=== PATIENT | male | born 1935 | race Caucasian/White ===

== ENCOUNTER 2017-07-26 12:49 | Emergency (ER) | payer MEDICARE, BC ==
[~2017-07-26] VITALS: Ht 177.8 cm; Wt 94.0 kg
[~2017-07-26 12:49] MED LIST: AUGMENTIN875TAB PO; BP MED; FLEXERIL PO; LOSARTAN/HCT1 TA2 PO; NAPROSYN500 MG PO; NICARDIPINE PO
[2017-07-26 13:18] LABS: HEMATOCRIT 40.7 % (39.0-50.0); HEMOGLOBIN 13.8 g/dl (14.0-18.0); IMMATURE GRANULOCYTES 0.3 % (0.0-1.0); MEAN CELL VOLUME 92.5 fL CALC (80.0-100.0); MEAN CORPUSCULAR HGB 31.4 pG CALC (26.0-32.0); MEAN CORPUSCULAR HGB CONC 33.9 g/L CALC (32.0-36.0); NEUT# 6.12 thou/uL (1.82-7.42); RED BLOOD COUNT 4.4 mill/uL (4.70-6.10); RED CELL DISTRI WIDTH 13.1 % (11.5-15.5)
[2017-07-26 13:23] LABS: ALBUMIN 3.9 g/dL (3.2-5.0); ALKALINE PHOSPHATASE 94 u/l (38-126); ANION GAP 14 (6-22 (CALC)); BILIRUBIN, TOTAL 0.7 mg/dL (0.0-1.4); BUN 24 mg/dL (8-23); BUN/CREATININE RATIO 17 (12-20 (CALC)); CARBON DIOXIDE 26 mmol/l (22-30); CHLORIDE 108 mmol/l (95-108); CPK 231 u/l (52-200); CREATININE 1.4 mg/dL (0.7-1.3); GFR 49 ML/MIN (>=60 (CALC)); GFR FOR AFR.AMER. 59 ML/MIN (>=60 (CALC)); POTASSIUM 4.2 mmol/l (3.5-5.1); SGOT/AST 30 u/l (19-48); SGPT/ALT 40 u/l (11-66); SODIUM 143 mmol/l (137-146)
[2017-07-26 14:20] LABS: URINE BILIRUBIN - DIPSTICK NEGATIVE (NEGATIVE); URINE BLOOD DIPSTICK TRACE-INTACT (NEGATIVE); URINE COLOR YELLOW; URINE GLUCOSE - DIPSTICK NEGATIVE (NEGATIVE); URINE KETONE NEGATIVE (NEGATIVE); URINE LEUK ESTERASE NEGATIVE (NEGATIVE); URINE PROTEIN - DIPSTICK 100 mg/dL (NEG-TRACE); URINE UROBILINOGEN - DIPSTICK 0.2 E.U./dL (0.2)
[2017-07-26 14:22] LABS: URINE CLARITY CLEAR
[2017-07-26 14:29] LABS: URINE HYALINE CAST FEW lpf (NONE-RARE); URINE NITRITE - DIPSTICK NEGATIVE (Negative); URINE RBC 0-2 RBC/hpf (0-5)
[2017-07-26 14:48] VITALS: BP 129/63
== END 2017-07-26 15:02 | disposition home or self-care (01) ==
LOC: ED 12:49
PROVIDERS: Emergency Medicine
DX: R55 Syncope and collapse (principal); I10 Essential (primary) hypertension; Z85.46 Personal history of malignant neoplasm of prostate

== ENCOUNTER 2018-05-24 11:28 | Emergency (ER) | payer MEDICARE ==
[~2018-05-24] VITALS: Ht 177.8 cm; Wt 92.0 kg
[2018-05-24] MEDS ORDERED: MULTI VIT PO (13:43)
[2018-05-24] MEDS ORDERED: ASPIRIN 81 LOW81 MG PO (13:44)
[2018-05-24] MEDS ORDERED: TRIANEX0.05 % EX (13:46)
[2018-05-24] MEDS ORDERED: TAMSULOSIN0.4 MG PO (13:48)
[2018-05-24] MEDS ORDERED: METO25TAB PO (13:48)
[2018-05-24] MEDS ORDERED: PROSCAR5 MG PO (13:49)
[2018-05-24] MEDS ORDERED: IRBESARTAN150 MG PO (13:50)
[2018-05-24] MEDS ORDERED: TORADOL PO (13:58)
[2018-05-24] MEDS ORDERED: MEDDOSEPAK PO (13:58)
[2018-05-24 14:50] VITALS: BP 136/83
== END 2018-05-24 14:50 | disposition home or self-care (01) ==
LOC: ED 11:28
DX: M25.521 Pain in right elbow (principal); I10 Essential (primary) hypertension

== ENCOUNTER 2019-06-07 | Inpatient (IN) | payer MEDICARE, OTHER ==
[~2019-06-07] MED LIST changes: +ASPIRIN 81 LOW81 MG PO; +IRBESARTAN150 MG PO; +MEDDOSEPAK PO; +METO25TAB PO; +MULTI VIT PO; +PROSCAR5 MG PO; +TAMSULOSIN0.4 MG PO; +TORADOL PO; +TRIANEX0.05 % EX
--- NOTE | 2019-06-07 11:55 | NUR ---
PT TAKEN TO ROOM VIA WC WITH AIRBORNE PRECAUTIONS
--- NOTE | 2019-06-07 12:15 | NUR ---
PT CAME IN RELATED TO FEVER AND N/V AT HOME STARTING THIS AM, AIRBORNE PRECAUTIONS MAINTAINED
--- NOTE | 2019-06-07 13:10 | NUR ---
IV ACCESS OBTAINED AND BC DRAWN FLU SWAB OBATINED WELL PT TOLERATED W/O INCIDENT.
[2019-06-07 13:28] LABS: HEMATOCRIT 40.2 % (39.0-50.0); HEMOGLOBIN 13.3 g/dl (14.0-18.0); IMMATURE GRANULOCYTES 0.4 % (0.0-5.0); MEAN CELL VOLUME 89.7 fL CALC (80.0-100.0); MEAN CORPUSCULAR HGB 29.7 pG CALC (26.0-32.0); MEAN CORPUSCULAR HGB CONC 33.1 g/dL CAL (32.0-36.0); NEUT# 17.23 thou/uL (1.82-7.42); RED BLOOD COUNT 4.48 mill/uL (4.70-6.10); RED CELL DISTRI WIDTH 13.5 % (11.5-15.5)
[2019-06-07 13:39] LABS: URINE BILIRUBIN - DIPSTICK NEGATIVE (NEGATIVE); URINE BLOOD DIPSTICK TRACE-INTACT (NEGATIVE); URINE COLOR YELLOW; URINE GLUCOSE - DIPSTICK NEGATIVE (NEGATIVE); URINE KETONE NEGATIVE (NEGATIVE); URINE LEUK ESTERASE NEGATIVE (NEGATIVE); URINE NITRITE - DIPSTICK NEGATIVE (Negative); URINE PROTEIN - DIPSTICK 100 mg/dL (NEG-TRACE); URINE SPECIFIC GRAVITY 1.025; URINE UROBILINOGEN - DIPSTICK 0.2 E.U./dL (0.2)
[2019-06-07 13:40] LABS: ALBUMIN 4.2 g/dL (3.2-5.0); ALKALINE PHOSPHATASE 81 u/l (38-126); ANION GAP 14 (6-22 (CALC)); BILIRUBIN, TOTAL 0.6 mg/dL (0.0-1.4); BUN 31 mg/dL (8-23); BUN/CREATININE RATIO 22 (12-20 (CALC)); CARBON DIOXIDE 25 mmol/l (22-30); CHLORIDE 104 mmol/l (95-108); CREATININE 1.4 mg/dL (0.7-1.3); GFR 48 ML/MIN (>=60 (CALC)); GFR FOR AFR.AMER. 59 ML/MIN (>=60 (CALC)); LIPASE 74 u/l (23-300); POTASSIUM 4.5 mmol/l (3.5-5.1); SGOT/AST 58 u/l (19-48); SODIUM 138 mmol/l (137-146); TOTAL PROTEIN 8.1 g/dL (6.3-8.2)
[2019-06-07 13:41] LABS: URINE MUCUS FEW hpf (NONE-FEW); URINE RBC 0-2 RBC/hpf (0-5)
--- NOTE | 2019-06-07 13:45 | NUR ---
CULTURE SWAB AND SECOND SET OF BC OBTAINED THEN IVF AND ABT STARTED ORDERED. PT TOLERATED WELL, REMAINS AT BEDSIDE, EDUCATED REGARDING PO FLUID INTAKE AND TO DO SO SLOWLY REASON FOR VISIT IS N/V
--- NOTE | 2019-06-07 14:20 | NUR ---
INTO SEE PATIENT AND SPOUSE SPOKE WITH THEM ABOUT ADMISSION BOTH AGREEABLE, NO NEW COMPLAINTS OFFERED.
--- NOTE | 2019-06-07 15:16 | NUR ---
REPORT CALLED TO LEENA DANIEL ON MED SURG AWARE OF AIRBORNE PRECAUTIONS.
--- NOTE | 2019-06-07 15:35 | NUR ---
PT TRASNFERRED TO MED SURG NEGATIVE PRESSURE ROOM VIA WHEELCHAIR, ALL BELONGINGS SENT WITH PT.
--- NOTE | 2019-06-07 15:38 | NUR ---
PT ARRIVED TO UNIT VIA WHEELCHAIR WITH ER STAFF; ALERT AND ORIENTED. PT AMBULATED TO BED WITH STEADY GAIT. DENIES PAIN. RESPIRATIONS EVEN AND UNLABORED ON OXYGEN 2L VIA NC. IV FLUIDS AND ZITHROMAX INFUSING UPON ARRIVAL; IV SITE APPEARS HEALTHY. LUNGS DIMINISHED; PT SKIN IS FLUSHED WITH 99.8 TEMP. TRACE EDEMA TO ANKLES. ORIENTED TO ROOM AND CALL LIGHT SYSTEM. PLAN OF CARE DISCUSSED. PT ENCOURAGED TO VERBALIZE CONCENRS. STATES UNDERSTANDING. SAFETY MEASURES IN PLACE. PT ON NEGATIVE PRESSURE ISOLATION AND EDUCATED ON PRECAUTIONS. CALL LIGHT WITHIN REACH.
[2019-06-07 15:49] VITALS: BP 153/66
--- NOTE | 2019-06-07 17:53 | NUR ---
AT BEDSIDE WITH N[address]ASK [address].
[2019-06-07 18:05] VITALS: BP 145/62
--- NOTE | 2019-06-07 18:15 | NUR ---
DINNER TRAY DELIVERED AND VITAL SIGNS IMPROVED FROM ADMIT. PT SITTING UP ALERT AND ORIENTED; PLEASANT AND TALKATIVE. TELE DISCONTINUED PER DR GARCES.
[2019-06-07] MEDS ORDERED: AMLODIPINE BESY10 MG PO (18:38)
[2019-06-07] MEDS ORDERED: APRESOLINE50 MG PO (18:38)
--- NOTE | 2019-06-07 18:59 | NUR ---
REPORT RECEIVED FROM FREDY STERN. PT RESTING IN BED. NO S/S OF DISTRESS AT THIS TIME. WILL CONTINUE TO MONITOR.
--- NOTE | 2019-06-07 19:45 | NUR ---
PT RESTING IN BED, ALERT AND ORIENTED. RESPIRATIONS EVEN AND UNLABORED ON O2 @ 2L VIA NC. LUNGS SOUND CLEAR/DIMINISHED. PEDAL PULSES ARE STRONG. PT DENIES ANY PAIN OR DISCOMFORT AT THIS TIME. SAFETY PRECAUTIONS IN PLACE. WILL CONTINUE TO MONITOR.
[2019-06-07 20:10] VITALS: BP 136/70
--- NOTE | 2019-06-08 00:55 | NUR ---
PT RESTING IN BED. RESPIRATIONS EVEN AND UNLABORED ON O2 @ 2L VIA NC. NO S/S OF DISTRESS AT THIS TIME. SAFETY PRECAUTIONS IN PLACE. WILL CONTINUE TO MONITOR.
[2019-06-08 03:49] VITALS: BP 149/63
--- NOTE | 2019-06-08 03:50 | NUR ---
PT RESTING IN BED. RESPIRATIONS EVEN AND UNLABORED ON O2 @ 2L VIA NC. PT ALERT AND ORIENTED. PT DENIES ANY PAIN OR DISCOMFORT. VS OBTAQINED. O2 TUBING EXTENDED PER PT REQUEST. SAFETY PRECAUTIONS IN PLACE. WILL CONTINUE TO MONITOR.
[2019-06-08 06:27] LABS: ANION GAP 10 (6-22 (CALC)); BUN 23 mg/dL (8-23); BUN/CREATININE RATIO 18 (12-20 (CALC)); CARBON DIOXIDE 25 mmol/l (22-30); CHLORIDE 107 mmol/l (95-108); CREATININE 1.3 mg/dL (0.7-1.3); GFR 53 ML/MIN (>=60 (CALC)); GFR FOR AFR.AMER. > 60 ML/MIN (>=60 (CALC)); POTASSIUM 4.2 mmol/l (3.5-5.1); SODIUM 137 mmol/l (137-146)
[2019-06-08 06:53] LABS: HEMATOCRIT 35.7 % (39.0-50.0); HEMOGLOBIN 11.6 g/dl (14.0-18.0); MEAN CELL VOLUME 90.4 fL CALC (80.0-100.0); MEAN CORPUSCULAR HGB 29.4 pG CALC (26.0-32.0); MEAN CORPUSCULAR HGB CONC 32.5 g/dL CAL (32.0-36.0); RED BLOOD COUNT 3.95 mill/uL (4.70-6.10); RED CELL DISTRI WIDTH 13.6 % (11.5-15.5)
[2019-06-08 08:00] VITALS: BP 162/80
--- NOTE | 2019-06-08 09:42 | NUR ---
PATIENT SITTING UPRIGHT IN BED , PATIENT ALERT AND ORIENTED X4. PATIENT HAS NO COMPLAINTS, DENIES COUGHING OR SOB. PATIENT EDUCATED ON THE IMPORTANCE OF ISOLATION.
[2019-06-08] MEDS ORDERED: ONDANSETRON4 MG PO (12:46)
--- NOTE | 2019-06-08 14:50 | NUR ---
IV site discontinued, cath intact. No edema , no redness, voices no discomfort.
--- NOTE | 2019-06-08 15:00 | NUR ---
Discharge instructions given. Patient verbalizes understanding of same. Discharged in stable condition via Wheelchair to Home with spouse. All belongings sent with pt.
--- NOTE | 2019-06-11 14:41 | NUR ---
Left message at phone number provided asking patient to call me back.
--- NOTE | 2019-06-11 14:44 | NUR ---
Spoke with and patient. Notifed patient of Negative Covid results. Advised patient to call PCP with any further questions or problems or to return to our emergency room with any issues or questions.
== END 2019-06-08 15:00 | disposition home or self-care (01) | DRG 392 ==
PROVIDERS: Family Medicine; ADMIT Internal Medicine
DX: K52.9 Noninfective gastroenteritis and colitis, unspecified (principal); I10 Essential (primary) hypertension; Z85.46 Personal history of malignant neoplasm of prostate; Z20.828 Contact with and (suspected) exposure to other viral communicable diseases

== ENCOUNTER 2020-06-08 12:13 | Emergency (ER) | payer MEDICARE, OTHER ==
[~2020-06-08] VITALS: Ht 177.8 cm; Wt 97.0 kg
[~2020-06-08 12:13] MED LIST changes: +AMLODIPINE BESY10 MG PO; +APRESOLINE50 MG PO; +ONDANSETRON4 MG PO
[2020-06-08 13:49] LABS: HEMOGLOBIN 14.2 g/dl (14.0-18.0); IMMATURE GRANULOCYTES 0.4 % (0.0-5.0); MEAN CELL VOLUME 92.1 fL CALC (80.0-100.0); MEAN CORPUSCULAR HGB 30.4 pG CALC (26.0-32.0); NEUT# 8.67 thou/uL (1.82-7.42); RED BLOOD COUNT 4.67 mill/uL (4.70-6.10); RED CELL DISTRI WIDTH 13.3 % (11.5-15.5)
[2020-06-08 14:03] LABS: ALBUMIN 4.6 g/dL (3.2-5.0); BILIRUBIN, TOTAL 0.6 mg/dL (0.0-1.4); CREATININE 1.8 mg/dL (0.7-1.3); POTASSIUM 4.5 mmol/l (3.5-5.1); TOTAL PROTEIN 8.2 g/dL (6.3-8.2)
[2020-06-08 14:04] LABS: ACT PARTIAL THROMBO TIME 26.1 SECONDS (20.0-32.5); PROTHROMBIN TIME 10.1 SECONDS (9.0-12.5)
[2020-06-08 15:13] VITALS: BP 119/71
== END 2020-06-08 15:13 ==
LOC: ED 12:13
DX: S66.321A Laceration of extensor muscle, fascia and tendon of left index finger at wrist and hand level, initial encounter (principal); S61.211A Laceration without foreign body of left index finger without damage to nail, initial encounter; I10 Essential (primary) hypertension; W31.1XXA Contact with metalworking machines, initial encounter; Y93.89 Activity, other specified; Y92.009 Unspecified place in unspecified non-institutional (private) residence as the place of occurrence of the external cause; Z95.0 Presence of cardiac pacemaker; Z20.822 Contact with and (suspected) exposure to COVID-19